=== PATIENT | male | born 1995 ===

== ENCOUNTER → 2019-08-27 08:39 | Outpatient (CLI) | payer OTHER, SELFPAY ==
--- NOTE | 2019-08-27 | DI.RAD.S_ITS ---
PROCEDURE: FL HIP INJECTION MR/CT RT INDICATIONS: Right hip pain TECHNIQUE: The indications, alternatives, benefits, risks, and complications of the procedure were explained to the patient. Written informed consent was obtained and placed in the chart. The hip was examined fluoroscopically with the legs fixed in slight internal rotation, and a site for needle placement chosen for entry into the hip joint from an anterior approach. Care was taken to locate the common femoral artery and vein beforehand. The skin was prepped and draped in a sterile fashion, and 1% Lidocaine infiltrated from skin down to joint capsule. A spinal needle was inserted into the joint, and a small amount of iodinated contrast media injected to confirm intra-articular placement of the needle tip. This was followed by approximately 12 mL dilute solution of a gadolinium containing MR contrast agent. The needle was removed and a dressing was applied. The patient was given postprocedural instructions and sent to the MR suite for imaging. FINDINGS: A single fluoroscopic spot image demonstrates intra-articular location of injected iodinated contrast. IMPRESSION: Successful fluoroscopically guided administration of dilute Gadolinium solution into the right hip joint for MR arthrogram. Dictated by: Heriberto White M.D. on 08/27/2019 at 9:57 Approved by: Heriberto White M.D. on 08/27/2019 at 9:57
--- NOTE | 2019-08-27 | DI.MRI.S_ITS ---
PROCEDURE: MR HIP RT W CON INDICATIONS: Right hip pain TECHNIQUE: After the administration of 10 mL of dilute intra-articular Gadolinium contrast, coronal STIR of the bony pelvis; coronal and oblique axial T1 spin echo with fat saturation, axial T2 fast spin echo with fat saturation, sagittal T1 spin echo with and without fat saturation of the involved hip. COMPARISON: None. FINDINGS: Image quality: Excellent. Bones and joints: There is no marrow edema. No intraosseous lesions or fractures. 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 Small subcortical cyst formation is noted in the lateral right acetabular roof. No suspicious intraosseous lesion. No avascular necrosis of the femoral head. The visualized lower lumbar spine appears normally aligned. The ligamental, neck, and labral plicae appear normal where visualized. Tendons and ligaments: The gluteus medius and minimus tendons appear intact, without associated muscle atrophy. The nearby proximal iliotibial band also appears intact. The iliopsoas tendon appears intact, without adjacent bursal fluid collections or evidence for impingement syndrome. The origin of the hamstring tendon is intact at the ischial tuberosity, as well as the associated sacrotuberous ligament. The straight and reflected heads of the rectus femoris muscle origin appear intact, as well as the conjoint tendon. The ligamentum teres appears intact where visualized. Labrum and cartilage: There is contrast extension in superior anterior labrum of the right hip consistent with superior anterior right hip labral tear. Cartilage surface of the femoral head appears of normal thickness. No paralabral cysts. The alpha angle of the femur is within normal limits at less than 55 degrees. Soft tissues: Visualized muscles demonstrate normal bulk and internal signal. Quadratus femoris muscle demonstrates no internal edema to suggest ischiofemoral impingement. The proximal sciatic neurovascular bundle appears normal adjacent to the hamstring tendons. No free pelvic fluid. Bladder wall thickness is normal. Genitourinary structures and bowel loops appear normal where visualized. IMPRESSION: 1. Mild prominence of right femoral head neck junction which can be seen in the case of CAM type femoral acetabular impingement. No marrow edema. No fracture or dislocation. No evidence of avascular necrosis of femoral head. 2. Finding is suggestive of superior anterior right hip labral tear. 3. Small subcortical cyst formation in lateral right acetabular roof. No suspicious intraosseous lesion. Dictated by: Mehul Villarreal M.D. on 08/27/2019 at 12:23 Approved by: Mehul Villarreal M.D. on 08/27/2019 at 12:27
== END ==
PROVIDERS: Referring Provider Registered Nurse; Visit Provider Registered Nurse
DX: M25.551 Pain in right hip (principal); M25.851 Other specified joint disorders, right hip
CPT/HCPCS: 27093; 73722; 77002